=== PATIENT | female | born 1945 | race Caucasian/White ===

== ENCOUNTER 2021-12-21 09:33 | Emergency (ER) | payer MEDICARE, BC, SELFPAY ==
[2021-12-21 09:38] VITALS: BP 136/52; PULSE 98; RESP 18; TEMP 36.6; O2SAT 98; BMI 28.3
--- NOTE | 2021-12-21 09:41 | CRLHL7_ITS ---
For Patients: As a result of the Century Cures Act, medical imaging exams and procedure reports are released immediately into your electronic medical record. You may view this report before your referring provider. If you have questions, please contact your health care provider. Indication: Injury and pain Technique: Right wrist 3 view Comparison: None Findings: There is a displaced and comminuted fracture of the distal radial metaphysis with dorsal angulation of the distal radial articular surface. Distal ulna intact. Degenerative changes at the triscaphe joint and 1st carpometacarpal joint. Impression: Displaced and comminuted distal radial fracture with dorsal impaction. Dictated by Elliot Koch MD @ 12/21/2021 11:12:42 AM (Electronically Signed)
[2021-12-21] MEDS: BUPIVACAINE 0.25% 30 ML INJECTION (10:44)
[2021-12-21 12:38] VITALS: BP 109/55; RESP 16
--- NOTE | 2021-12-22 00:30 | ED.UPPEXIN ---
HPI - Extremity Injury (Upper) General Chief Complaint: Extremity Pain/Injury, Upper Stated Complaint: Wrist Injury Time Seen by Provider: 12/21/21 10:12 History of Present Illness HPI narrative: 76-year-old woman presenting to the emergency department after tripping over a dog or rather a dog [place] the dog park causing a fall and injuring her right wrist. She is rather disappointed noting that she had a lot of gardening to do today. Wrist deformity is noted on triage. No other injuries were sustained. Not hit her head. There was no loss of consciousness. No complaint of back pain. Related Data Home Medications Medication Instructions Recorded Confirmed atorvastatin PO 10/31/21 10/31/21 hydrochlorothiazide PO 10/31/21 10/31/21 sertraline PO 10/31/21 10/31/21 Allergies Allergy/AdvReac Type Severity Reaction Status Date / Time No Known Drug Allergies Allergy Verified 10/31/21 09:21 Review of Systems Status of ROS: Reports: 6 or more systems reviewed and unremarkable except as noted in History and below PFSH PFS Medical History Anxiety Arthritis Depression High cholesterol Menieres disease Surgical History H/O foot surgery H/O: hysterectomy S/P total left hip arthroplasty Status post left hip replacement Family History (Updated 10/31/21 @ 09:25 by Jayshree Walden RN) Other Prostate cancer Stroke Social History Smoking Status: Never smoker Do you use any of these nicotine containing products: None How often do you have a drink containing alcohol: monthly or less AUDIT-C Alcohol total score: 1 Non-prescribed substance use: denies use Exam Narrative: Exam Narrative: Very pleasant. Calm. Favoring right hand/arm. It is resting on a pillow. Head atraumatic. Neck appears to be supple. Breathing easily. No pain to movement of the arm about the shoulder. Intact sensation and capillary refill with well-perfused extremities. Clear dorsal deformity/swelling of the distal right radius/wrist area. Const: Vital Signs, click to edit/add: Vital Signs - 24 hr 12/21/21 09:38 12/21/21 12:38 Temperature 97.8 F Pulse Rate [Left P ulse Oximeter] 98 Respiratory Rate 18 16 Blood Pressure [Le ft Upper Arm] 136/52 L 109/55 L Pulse Oximetry 98 Oxygen Delivery Me thod Room Air Documenting provider has reviewed patient's vital signs: yes Course Course Hospital Course: My review of wrist x-ray confirms comminuted mildly impacted and dorsally angulated distal radius. Consent obtained and place a hematoma block with Marcaine after cleansing with Betadine. Returning with staff assist, able to reduce without significant difficulty applying dorsal and distal pressure. Pain was still experienced by Ms. Urias but tolerated very well. This does look to be in very good alignment. Capillary refill maintained. Sensation intact. Dorsal and volar splinting applied. Moving all fingers. Dispensed arm sling. Alignment looks quite good, did not do postreduction films. Did discuss with Orthopedics for follow-up/recommendations. Vital Signs Vital signs: Initial Vital Signs Temperature 97.8 F 12/21/21 09:38 Temperature Source Temporal Artery Scan 12/21/21 09:38 Pulse Rate 98 12/21/21 09:38 Respiratory Rate 18 12/21/21 09:38 Blood Pressure 136/52 L 12/21/21 09:38 Blood Pressure Mean 80 12/21/21 09:38 Blood Pressure Position Sitting 12/21/21 09:38 Pulse Oximetry 98 12/21/21 09:38 Oxygen Delivery Method 12/21/21 09:38 Vital Signs Temperature 97.8 F 12/21/21 09:38 Pulse Rate 98 12/21/21 09:38 Respiratory Rate 18 12/21/21 09:38 Blood Pressure 136/52 L 12/21/21 09:38 Pulse Oximetry 98 12/21/21 09:38 Oxygen Delivery Method 12/21/21 09:38 Temperature 97.8 F 12/21/21 09:38 Pulse Rate 98 12/21/21 09:38 Respiratory Rate 16 12/21/21 12:38 Blood Pressure 109/55 L 12/21/21 12:38 Pulse Oximetry 98 12/21/21 09:38 Oxygen Delivery Method 12/21/21 09:38 MDM - Extremity Injury (Upper) Medical Records Attestation: I reviewed the patient's medical records. Discharge Plan Discharge Clinical Impression: Distal radius fracture, right Patient Disposition: Home, Self-Care Condition: Improved Additional Instructions: Elevate for comfort. Can take ibuprofen or acetaminophen. Instead of ibuprofen could take up to 500 mg of naproxen 2 times daily as well. Acetaminophen can be combined with either ibuprofen or naproxen. Call later today for an appointment early next week with Orthopedics. Phone number is [phone] These things are always in convenient. I hope you can enjoy your book. Prescriptions: No Action atorvastatin PO sertraline PO hydrochlorothiazide PO Follow Up/Referrals: Ruthy Reis PA [Primary Care Provider] - Stand Alone Forms: [employer] Info Instructions
== END 2021-12-21 12:44 | disposition home or self-care (01) ==
PROVIDERS: Emergency Provider Family Medicine; PCP Physician Assistant
DX: S52.501A Unspecified fracture of the lower end of right radius, initial encounter for closed fracture (principal); W19.XXXA Unspecified fall, initial encounter; W54.8XXA Other contact with dog, initial encounter
CPT/HCPCS: 29125; 73110; 99283; J3490

== ENCOUNTER 2021-12-27 07:17 | Day surgery (SDC) | payer MEDICARE, BC, SELFPAY ==
[2021-12-27] VITALS (14 sets, daily range): BP systolic 100–141; BP diastolic 41–67; PULSE 59–80; RESP 14–16; TEMP 36.2–36.3; O2SAT 90–100; BMI 28.9
[2021-12-27] MEDS: CEFAZOLIN 1 GM inj IVP (07:45)
--- NOTE | 2021-12-27 07:47 | SUR.PREOP ---
Verified neg Covid test on patient's phone.
[2021-12-27] MEDS: SODIUM CHLORIDE 0.9 % (FLUSH) 10 ML SYRINGE IVF (08:15)
[2021-12-27] MEDS: LACTATED RINGERS 1000 ML 1,000 ML 100 ML IV (08:15)
[2021-12-27] MEDS: fentaNYL 100 MCG/2 ML inj IVP (08:37)
[2021-12-27] MEDS: MIDAZOLAM HCL 1 MG/ML inj IVP (08:37)
--- NOTE | 2021-12-27 08:40 | SUR.PREOP ---
TIME?OUT:?0836 PT/RN/MDA?VERIFICATION?OF?SURGICAL?SITE,?PROCEDURE,?AND?CONSENT OBTAINED?PRIOR?TO?INVASIVE?PROCEDURE. All in agreement.
--- NOTE | 2021-12-27 08:44 | P.NB_ITS ---
Nerve Block Nerve Block Time Seen by Provider: 08:40 Date Seen: 12/27/21 Type of block requested by surgeon for post-operative analgesia: axillary Side: right Time out performed: Yes Verification of patient name: Yes Verification of date of : Yes Site marking: site marked Name of person performing procedure: Quinten Parr, if any: Dewey Continuous monitoring Was continuous monitoring of O2 sat, B/P, cardiac rehabilitation program director, recorded every 15 minutes?: Yes Procedure Checklist: sterile prep, needles and gloves Ultrasound guided. Images saved: Yes Medications given in 5ml increments after negative aspiration: Ropivicaine %: 0.5 mL: 30 Needle gauge: 22 Patient tolerated procedure well: Yes Additional comments: Needle noted adjacent to nerve Block Charges Block Charge (with Pro Fee): Brachial Plexus Use of Ultrasound Machine for Block: Yes- US Guidance/pain block
--- NOTE | 2021-12-27 09:15 | CRLHL7_ITS ---
For Patients: As a result of the Cures Act, medical imaging exams and procedure reports are released immediately into your electronic medical record. You may view this report before your referring provider. If you have questions, please contact your health care provider. Indication: Right Wrist Fx CRPP Technique: 3 fluoroscopic images right wrist. Fluoroscopic time 42.2 seconds. IMPRESSION: Fluoroscopic guidance for closed reduction/percutaneous fixation distal radial fracture. Dictated by Elliot Koch MD @ 12/27/2021 10:23:46 AM (Electronically Signed)
--- NOTE | 2021-12-27 10:05 | P.ORPRC_ITS ---
Procedure Note Date of procedure: 12/27/21 Procedure: SURGEON: Steve Azul MD STEREOTYPER: DANIEL Chavarria PREOPERATIVE DIAGNOSIS: Angulated 2 part extra-articular right upper extremity distal radius fracture POSTOPERATIVE DIAGNOSIS: Angulated 2 part extra-articular right upper extremity distal radius fracture NAME OF OPERATION: Closed reduction percutaneous pinning ANESTHESIA: Supraclavicular block plus monitored anesthesia care ESTIMATED BLOOD LOSS: 0 mL COMPLICATIONS: None SPECIMENS: None DRAINS: None PREOPERATIVE ANTIBIOTICS: Ancef 1 g INDICATIONS: The patient is a 76-year-old female who was knocked down, fell and landed on their upper extremity sustaining the above injury. Given the amount of angulation, reduction and pin fixation were recommended. The risks, benefits and expected outcomes were discussed in detail. These included but were not limited to: Infection, bleeding, injury to blood vessel or nerve, venous thromboembolism. All questions were answered to their satisfaction. Use of an marketing support assistant was necessary throughout the case for patient positioning and safety, maintenance of the reduction, pin site dressing and splint application. PROCEDURE: A supraclavicular block was placed by Anesthesia. The patient was placed supine on the operating room table. IV sedation was administered. The upper extremity was prepped and draped in the usual sterile fashion. The reduction was obtained with longitudinal traction and volar force on the distal fragment. The image intensifier was used to confirm an anatomic reduction. We placed a 0.062 in K-wire retrograde through the radial styloid across the fracture site engaging the ulnar cortex of the proximal fragment. Its placement was confirmed with the image intensifier. We placed a 2nd 0.062 in K-wire parallel to this just volar to the original pin. Finally we placed a 3rd 0.062 in K-wire antegrade through the radial cortex of the proximal fragment across the fracture site engaging the ulnar side of the distal fragment. This construct was imaged in multiple views and was felt to have an excellent reduction with well placed pins. The pins were bent, cut off and were appropriately dressed. A well-padded short-arm dorsovolar splint was applied. Sponge and needle counts were correct x2. The patient tolerated the procedure well. There were no apparent complications. They were carefully transferred to the hospital bed and taken to the postanesthesia care unit in satisfactory condition. PLAN: The patient will be discharged home. They will work on elevation of the hand and active range of motion of the fingers. They will follow up in the office next week to assess the pin sites with three views of the wrist out of the splint prior to being seen in preparation for cast immobilization.
--- NOTE | 2021-12-27 10:16 | W.ANESCHARGE ---
Anesthesia Charges Start Date/Time Anesthesia Start Date: 12/27/21 Anesthesia Start Time: 09:37 Stop Date/Time Anesthesia Stop Date: 12/27/21 Anesthesia Stop Time: 10:15 Summary Emergency: No Extremes of Age: Over 71-CPT 97369
--- NOTE | 2021-12-27 14:23 | W.ANESCHARGE ---
Anesthesia Charges Start Date/Time Anesthesia Start Date: 12/27/21 Anesthesia Start Time: 09:37 Stop Date/Time Anesthesia Stop Date: 12/27/21 Anesthesia Stop Time: 10:15 Summary Emergency: No Extremes of Age: Over 71-CPT 54811
== END 2021-12-27 13:23 | disposition home or self-care (01) ==
PROVIDERS: PCP Physician Assistant; Visit Provider Orthopaedic Surgery
PROC: (CPT 25606; principal; 2021-12-27 09:15)
DX: S52.551A Other extraarticular fracture of lower end of right radius, initial encounter for closed fracture (principal)
CPT/HCPCS: 25606; 01830; 64415; 73110; 76000; 76942; 99100; J0690; J1100; J2250; J2405; J2704; J2795; J3010; J7120

== ENCOUNTER 2022-01-28 11:15 | Outpatient (RCR) | payer MEDICARE, BC, SELFPAY | END 2022-04-19 08:36 | disposition home or self-care (01) | PROVIDERS: PCP Physician Assistant; Visit Provider Physician Assistant | DX: M25.551 Pain in right hip (principal); Z51.89 Encounter for other specified aftercare | CPT/HCPCS: 97110; 97112; 97140; 97162; 97530 ==

== ENCOUNTER 2022-02-19 10:30 | Outpatient (RCR) | payer MEDICARE, BC, SELFPAY ==
--- NOTE | 2022-02-06 16:03 | OT.OPOE ---
OT Outpatient Ortho Eval OT Outpatient Ortho Eval Start: 02/06/22 13:41 Freq: Status: Active Protocol: Document 02/06/22 15:49 AMB (Rec: 02/06/22 16:00 AMB [id number]) E-signed By Christi Galaviz, OTR/L, CLT, OXYGEN TANK FILLER OT OP Ortho Eval Details Type Type Eval Complexity Low Insurance Information Insurance Information Medicare B Outpatient History/Precautions Current Condition/Medical Diagnosis Referring Provider Dr Azul Treatment Diagnosis RUE DR metzger with CRPP Date of Onset DOI 12/21/21, DOS 12/27/21 Precautions Lifting Restrictions Other Precautions Keep pin sites dry for 48 hours Medical Conditions Depression,HTN,Metal Implants, Arthritis Other Conditions PMH includes LTHA in 2014 Medical/Functional History Medical History Reviewed Yes Prior Level of Function/Mobility Full, pain-free use of her RUE Social History Employment Status Retired Oriented Mental Status No Concerns Ortho Subjective Subjective Subjective Pt states she fell due to [place] sustaining the wrist fx. Pt fell on 12/21/21 and underwent CRPP on 12/27/[address] Azul. Pt states she got her pins out today and it went better than she expected. Pt states she has less than a 1/ 10 pain level and is happy to start getting it to move. Pt states they will be leaving in 2 weeks to stay in their [facility] home so she will only be able to attend 3 sessions of OT. Pain Assessment Pain Present Pain Present Pain Reported Location Right Wrist Description Dull, Achy Intensity 1 Wrist Goniometric Wrist Right Active Flexion (70-90 degrees) 30 L Active Extension (60-70 degrees) 15 L Active Ulnar Deviation (20-30 degrees) 5 L Active Radial Deviation (15-20 degrees) 8 L Goniometric Comments Goniometric Comments Goniometric Comments AROM of RUE elbow is WNL, forearm supination is 5, pronation is 8, AROM of RUE hand, composite fist is -2.5cm from tip of 3rd digit to DPC, opposition is to tip of 5th digit. OT Objective Data Hand Hand Dominance Right Hand Function Severely limited secondary to weakness and limited AROM. Skin/Wounds Skin Integrity Comments Pin sites are covered with bandage as pins were just removed. Skin is dry and flakey. OT Problems Problems Other Problems Writing,Opening Containers, Dressing,Computer Patient Potential Good Assessment Assessment Assessment Pt presents to OT with significant limitations in AROM and strength of the RUE which impairs her ability to cook, do her hair, write, clean, anything that requires 2 hands. Pt will benefit from skilled OT intervention to address deficits in order to restore full, pain-free use of her RUE. Occupational Therapy Treatment Plan - OP Potential Rehabilitation Potential Good Set Goals Goals Set with Patient Yes Goals Goals 1. Pt will be independent and compliant with HEP in order to resume full, pain-free use of the involved UE. 3 weeks 2. Pt will demonstrate full, pain-free AROM of the involved UE in order to improve ability to grasp and hold. 6 weeks 3. 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 8 weeks. Progress set Treatment Plan Treatment Plan Evaluation,Joint Mobilization, Manual Therapy,Wound Care/Scar Management,Therapeutic Exercise,Therapeutic Activities,Self-Care/Home Management,Education Expected Frequency 1-2x Week Expected Duration 4-6 Weeks Expected Duration Comments Pt will be leaving for her winter home in 2-3 weeks. Certification Certification I Certify That: Therapy Services Provided, Therapy Plan Established, Therapy Plan Reviewed Recertification Information Recertification Information Initial Certification Date 02/06/22 Recertification Start Date 05/07/22 Recertification Due Date 05/07/22 Reasons to Continue Skilled Therapy Initiated OT for rehabilitation of the RUE wrist secondary to fx. Rehabilitation Potential Good Provider Signature Shows Agreement With POC & Medical Necessity Physician Comment/Change Comment or Changes Physician NPI Number #
== END 2022-09-12 23:59 | disposition home or self-care (01) ==
PROVIDERS: PCP Physician Assistant; Visit Provider Orthopaedic Surgery
DX: Z98.890 Other specified postprocedural states (principal); Z51.89 Encounter for other specified aftercare
CPT/HCPCS: 97110; 97140; 97165; X5282

== ENCOUNTER 2025-02-14 14:45 | Outpatient (RCR) | payer MEDICARE, SELFPAY | END 2025-02-14 16:24 | disposition home or self-care (01) | PROVIDERS: PCP Physician Assistant; Visit Provider Physician Assistant | DX: M25.552 Pain in left hip (principal); M54.50 Low back pain, unspecified; Z51.89 Encounter for other specified aftercare | CPT/HCPCS: 97110; 97161; 97530 ==